=== PATIENT | male | born 1985 | race Caucasian/White ===

== ENCOUNTER 2016-07-07 17:57 | Emergency (ER) | payer OTHER ==
[~2016-07-07] VITALS: Ht 177.8 cm; Wt 111.0 kg
[2016-07-07 18:02] VITALS: TEMP 37.1; Ht 177.8 cm; Wt 111.0 kg
[2016-07-07] MEDS ORDERED: KETOROLAC TROMETHAMINE 60 MG/2 ML VIAL IM STA (18:21)
--- NOTE | 2016-07-07 18:55 | DIAGNOSTIC IMAGING REPORT ---
L-SPINE MIN 4 VIEWS ROUTINE CLINICAL HISTORY: low back pain COMPARISON STUDY: No previous studies for comparison. FINDINGS: There are 5 lumbar type vertebral bodies present. No fractures or subluxations are visualized. No destructive lesions are evident. IMPRESSION: No fractures, subluxations, or destructive lesions are visualized. Electronically signed by: Brien Nova M.D. 07/07/2016 6:54 PM Dictated Date/Time: 07/07/2016 6:53 PM
--- NOTE | 2016-07-07 19:04 | EMERGENCY ROOM VISIT NOTE ---
ED Visit Note First contact with patient: 18:04 CHIEF COMPLAINT: Low back pain HISTORY OF PRESENT ILLNESS: This 31-year-old male presents the ER with chief complaint of low back pain. 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 He states he got a throbbing sensation down his left leg. He does not describe it as pain. The patient has never had any back problems in the past. The patient denies any urinary symptoms. The patient denies any saddle anesthesia or loss of bladder or bowel control. He took ibuprofen 200 mg by mouth for pain. He drove himself to the emergency room. REVIEW OF SYSTEMS: 6 system review was performed and was negative unless stated otherwise in history of present illness. PMH: The patient is healthy; adenoidectomy SOCIAL HISTORY: Patient lives his fianc. The patient denies tobacco use but admits to occasional alcohol use PHYSICAL EXAM: Vital Signs normal: Reviewed Nurse's notes and agree. GEN.: 31- year-old white male appears in no acute distress. MENTAL STATUS: Alert and oriented in no acute distress. LUMBAR SPINE: No gross bony abnormality noted. Patient is nontender to palpation over the spinous processes. He is tender to palpation over the left paravertebral region, right side nontender. He has full range of motion of the lumbar spine with pain elicited with flexion. Muscle strength is 5 out of 5 bilateral lower extremities and symmetrical. NEURO: Patient is able to heel and toe walk without difficulty. I lateral patellar and Achilles reflexes are 2+. Sensation is intact to pinprick bilateral lower extremities. Negative straight leg raise bilaterally. EMERGENCY DEPARTMENT COURSE: The patient was evaluated. The patient was given Toradol 60 mg IM. X-ray of the lumbar spine was ordered and interpreted by the radiologist and myself. DIAGNOSTICS:L-SPINE MIN 4 VIEWS ROUTINE CLINICAL HISTORY: low back pain COMPARISON STUDY: No previous studies for comparison. FINDINGS: There are 5 lumbar type vertebral bodies present. No fractures or subluxations are visualized. No destructive lesions are evident. IMPRESSION: No fractures, subluxations, or destructive lesions are visualized. Electronically signed by: Brien Nova M.D. 07/07/2016 6:54 PM The patient was informed of the findings. The patient was discharged home in stable condition DIAGNOSIS: Lumbar strain DISCHARGE INSTRUCTIONS AND TREATMENT: Ibuprofen 600 mg every 6 hours with food for pain. Rx is given for [place] 5/325 mg. 1-2 tablets every 6 hours as needed for more severe pain. Dispense [address] taking the [place]. Patient was also given Rx for Flexeril 10 mg. One tablet p.o. every 8 hours for muscle spasms. Dispense [address] taking the Flexeril. Avoid staying in any one position for an extended period of time. If symptoms persist or worsen, follow up with your family doctor for referral for additional testing. Current/Historical Medications No Active Prescriptions or Reported Meds Allergies Coded Allergies: No Known Allergies (Unverified , 07/07/16) Vital Signs Date Time Temp Pulse Resp B/P Pulse Ox O2 Delivery O2 Flow Rate FiO2 07/07/16 18:02 37.1 66 18 137/96 98 Room Air Medications Administered Medications (Trade) Dose Ordered Sig/Jody Route Start Time Stop Time Status Last Admin Dose Admin Ketorolac Tromethamine (Toradol Inj) 60 mg NOW STAT IM 07/07/16 18:21 07/07/16 18:24 DC 07/07/16 18:28 60 MG Departure Information Prescriptions No Active Prescriptions or Reported Meds Referrals No Doctor, Assigned (PCP) Patient Instructions [facility]
[2016-07-07] MEDS ORDERED: HYDR-5688 PO (19:06)
[2016-07-07] MEDS ORDERED: CYCL10TA6 PO (19:06)
[2016-07-07 19:08] VITALS: BP 162/92; PULSE 63; O2SAT 95
== END 2016-07-07 19:12 | disposition home or self-care (01) ==
LOC: C.EDB 17:58 → C.EDD 19:12
DX: S39.012A Strain of muscle, fascia and tendon of lower back, initial encounter (principal); X50.3XXA Overexertion from repetitive movements, initial encounter; Y99.0 Civilian activity done for income or pay

== ENCOUNTER → 2016-08-31 | Outpatient (CLI) | payer OTHER ==
[~2016-08-31] MED LIST: HYDR-5688 PO
--- NOTE | 2016-08-31 12:57 | DIAGNOSTIC IMAGING REPORT ---
LUMBAR SPINE MRI HISTORY: LUMBAR SPINE PAIN M54.5 TECHNIQUE: Multiplanar multisequence MRI of the lumbar spine was performed without the use of contrast. COMPARISON: Lumbar spine 07/07/2016. FINDINGS: For the purpose of the report the L5-S1 disc space will be located on axial image 27 of 30. Mild disc space narrowing and disc desiccation L5-S1. Remaining disc spaces are preserved. No fracture or subluxation. The conus terminates at the L1-L2 disc space level. Paraspinal soft tissues are unremarkable. L1-L2: No significant central canal or neural foraminal narrowing. L2-L3: No significant central canal or neural foraminal narrowing. L3-L4: No significant central canal or neural foraminal narrowing. L4-L5: No significant central canal or neural foraminal narrowing. L5-S1: There is a central/right paracentral focal disc protrusion which measures 2.1 x 0.7 cm. This abuts and slightly compresses the transiting right S1 nerve root. This also abuts the transiting left S1 nerve root. No significant central canal or neural foraminal narrowing. IMPRESSION: A central/right paracentral focal disc protrusion at L5-S1 which abuts and slightly compresses the transiting right S1 nerve root and also abuts the transiting left S1 nerve root. Electronically signed by: Eleazar Donald M.D. 08/31/2016 12:56 PM Dictated Date/Time: 08/31/2016 12:51 PM
== END | disposition home or self-care (01) ==
LOC: C.MRI 10:57
PROVIDERS: ATTEND Orthopaedic Surgery Orthopaedic Surgery of the Spine
DX: M54.5 Low back pain (principal); M51.16 Intervertebral disc disorders with radiculopathy, lumbar region

== ENCOUNTER → 2017-03-01 | Outpatient (CLI) | payer OTHER ==
--- NOTE | 2017-03-01 16:02 | DIAGNOSTIC IMAGING REPORT ---
CHEST 2 VIEWS ROUTINE CLINICAL HISTORY: Z01.818 PREOPERATIVE CHEST COMPARISON STUDY: No previous studies for comparison. FINDINGS: The cardiac and mediastinal contours are normal. There is no evidence of focal pulmonary consolidation. There is no evidence of failure. No pleural effusions are visualized.[ IMPRESSION: No active disease in the chest. Electronically signed by: Brien Nova M.D. 03/01/2017 4:00 PM Dictated Date/Time: 03/01/2017 4:00 PM
== END | disposition home or self-care (01) ==
LOC: C.RAD 15:18
PROVIDERS: ATTEND Orthopaedic Surgery Orthopaedic Surgery of the Spine
DX: Z01.818 Encounter for other preprocedural examination (principal)